=== PATIENT | male | born 1950 | race Caucasian/White ===

== ENCOUNTER 2017-10-05 18:15 | Observation (INO) | payer OTHER ==
[~2017-10-05] VITALS: Ht 172.7 cm; Wt 70.0 kg
[~2017-10-05 18:15] MED LIST: ACET500 PO; ALBIPROI INH; ALBU90I INH; ALBU90OI INH; ALBU90OI6 INH; ANTIBIOTIC OINT28 GM TOP; ASPI325 PO; ASPI81CH PO; ASPI81EC PO; ATOR10 PO; BISA10S PR; BISM87SU PO; CLON.5 PO; CLOP75 PO; DILT120 PO; DOK100 MG PO; DOXY100 PO; Enema133 M1 PR; FISH1000 PO; FOLI1 PO; FORM12IH INH; Flonase 0.05% N16 GM; GABA100 PO; IPRAOI INH; LEVO750 PO; LISHYD1012 PO; LISI5 PO; LITH300C PO; LORA10ER PO; METO50 PO; MULVITMIND PO; Milk Of Ma400 MG/5 M PO; Miralax17 GM PO; NAPR550 PO; NATURE'S TEARS15 M1 OP; Norco 5-325 Ta1 EACH PO; PRED20 PO; PYRI100 PO; QUET100 PO; RXNAPNA550 PO; SILD50TA PO; SIMV10 PO; TAMS.4ER PO; THIA100 PO; TIOT18 INH; TOCO400 PO; XARELTO20 MG PO; [UNRECOGNIZED DRUG - CODE] TOP; [UNRECOGNIZED DRUG - OTHER] TOP
[2017-10-05 19:12] LABS: BASOPHILS ABSOLUTE AUTO 0.03 K/mm3 (0.00-0.23); BASOPHILS PERCENT AUTO 0 % (0-2); EOSINOPHILS ABSOLUTE AUTO 0.16 K/mm3 (0.00-0.68); EOSINOPHILS PERCENT AUTO 2 % (0-6); Hematocrit 39.7 % (37.0-53.0); Hemoglobin 13.4 g/dL (13.5-17.5); IMMATURE GRAN ABSOLUTE AUTO 0.07 K/mm3 (0.00-0.10); IMMATURE GRAN PERCENT AUTO 1 % (0-1); LYMPHOCYTES ABSOLUTE AUTO 2.16 K/mm3 (0.84-5.20); LYMPHOCYTES PERCENT AUTO 25 % (21-46); MONOCYTES ABSOLUTE AUTO 0.72 K/mm3 (0.16-1.47); MONOCYTES PERCENT AUTO 8 % (4-13); Mean Corpuscular HGB 31.3 pg (26.0-34.0); Mean Corpuscular HGB Conc 33.8 g/dL (31.5-36.5); Mean Corpuscular Volume 93 fL (80-100); Mean Platelet Volume 8.7 fL (9.1-12.4); NEUTROPHILS ABSOLUTE AUTO 5.52 K/mm3 (1.96-9.15); NEUTROPHILS PERCENT AUTO 64 % (41-73); Platelet Count 205 K/mm3 (150-400); RDW Coefficient Variation 15.3 % (11.7-14.2); RDW Standard Deviation 51.6 fL (35.1-46.3); Red Blood Cell Count 4.28 M/mm3 (4.30-5.90); White Blood Cell Count 8.66 K/mm3 (4.00-11.30)
[2017-10-05 19:28] LABS: Alanine Aminotransfer (ALT/SGP 24 U/L (12-78); Albumin, Blood 3.1 g/dL (3.4-5.0); Albumin/Globulin Ratio 0.8 (0.8-1.8); Alk Phos 92 U/L (50-136); Anion Gap 13 mmol/L (6-16); Aspartate Aminotrans (AST/SGOT 35 U/L (12-37); Bilirubin, Total 0.4 mg/dL (0.1-1.0); Blood Urea Nitrogen 7 mg/dL (8-24); Bun/Creatinine Ratio 12.9 (12.0-20.0); CO2, Blood 26 mmol/L (21-32); Chloride, Blood 96 mmol/L (98-108); Creatinine, Blood 0.54 mg/dL (0.60-1.20); Ethanol (Alcohol), Blood, Med 102 mg/dL; Globulin, Blood 3.8 g/dL (2.2-4.0); Glomerular Filtration Rate >60 (60-); Glucose, Blood 81 mg/dL (70-99); Potassium, Blood 2.9 mmol/L (3.5-5.5); Salicylate 3.3 mg/dL (2.8-20.0); Sodium, Blood 135 mmol/L (136-145); Thyroxine (T4) 9.2 ug/dL (4.5-12.1); Total Protein, Blood 6.9 g/dL (6.4-8.2)
[2017-10-05 19:31] LABS: Thyroid Stimulating Hormone 0.997 uIU/mL (0.360-4.800)
[2017-10-05 19:37] LABS: Acetaminophen, Random <2.0 ug/mL (10.0-30.0)
[2017-10-05 19:51] LABS: Source, Urine Clean Catch
[2017-10-05 20:14] LABS: U Amphetamine Screen Not Detected; U Barbituate Screen Not Detected; U Benzodiazapine Screen Not Detected; U Buprenorphine Screen Not Detected; U Cannabinoids Screen DETECTED; U Cocaine Screen Not Detected; U Methadone Screen Not Detected; U Methamphetamine Screen Not Detected; U Opiates Screen Not Detected; U Oxycodone Screen Not Detected; U Phencyclidine Screen Not Detected; U Propoxyphene Screen Not Detected
[2017-10-05 20:34] LABS: Bilirubin, Urine Neg (Neg); Blood, Urine Neg (Neg); Glucose Qualitative, Urine Neg (Neg); Ketones, Urine Neg (Neg); Leukocyte Esterase, Urine Neg (Neg); Nitrite, Urine Neg (Neg); Protein, Urine 1+ (Neg); Specific Gravity, Urine 1.015 (1.003-1.022); Urobilinogen, Urine 1+ (Normal)
[2017-10-05 20:52] LABS: Appearance, Urine Clear (Clear); Color, Urine Yellow (P-Yellow)
[2017-10-06 20:25] LABS: Calcium, Ionized (POC) 1.08 mmol/L (1.10-1.46); Chloride (POC) 92 mmol/L (98-108); Creatinine (POC) 0.6 mg/dL (0.8-1.3); Glucose (ISTAT POC) 103 mg/dL (70-99); Hemoglobin (POC) 13.3 g/dL (13.5-17.5); Potassium (POC) 3.3 mmol/L (3.5-5.5); Sodium (POC) 136 mmol/L (135-148); Total CO2 (POC) 32 mmol/L (21-32)
[2017-10-07 10:09] LABS: Lithium <0.20 mmol/L (0.60-1.20)
== END 2017-10-07 15:05 | disposition home or self-care (01) ==
LOC: ER 18:15 → EOR 18:16
PROVIDERS: Emergency Medicine; Physician Assistant; Psychiatry & Neurology Psychiatry
DX: F31.60 Bipolar disorder, current episode mixed, unspecified (principal); R45.851 Suicidal ideations; F12.10 Cannabis abuse, uncomplicated; F10.20 Alcohol dependence, uncomplicated; E87.6 Hypokalemia; F17.200 Nicotine dependence, unspecified, uncomplicated; J44.9 Chronic obstructive pulmonary disease, unspecified; I73.9 Peripheral vascular disease, unspecified; Z79.82 Long term (current) use of aspirin; Z79.891 Long term (current) use of opiate analgesic; Z79.899 Other long term (current) drug therapy; Z87.01 Personal history of pneumonia (recurrent); Z86.73 Personal history of transient ischemic attack (TIA), and cerebral infarction without residual deficits; Z86.59 Personal history of other mental and behavioral disorders; Z95.1 Presence of aortocoronary bypass graft
CPT/HCPCS: 36415; 80047; 80053; 80178; 84436; 84443; 85014; 85025; 99285; G0378; G0480

== ENCOUNTER 2017-12-17 07:55 | Inpatient (IN) | payer MEDICARE, OTHER ==
[~2017-12-17] VITALS: Ht 172.7 cm; Wt 61.8 kg
[2017-12-17 08:15] LABS: PCO2 Arterial 35.4 mmHg (35-45); PO2 Arterial 67.8 mmHg (80-100); pH Blood Arterial 7.46 (7.35-7.45)
[2017-12-17 08:46] LABS: Mean Corpuscular HGB 31.8 pg (26.0-34.0); Mean Corpuscular HGB Conc 33.3 g/dL (31.5-36.5); Mean Corpuscular Volume 95 fL (80-100); Mean Platelet Volume 10.8 fL (9.1-12.4); Platelet Count 289 K/mm3 (150-400); RDW Coefficient Variation 14.8 % (11.7-14.2); RDW Standard Deviation 52.2 fL (35.1-46.3); Red Blood Cell Count 5.35 M/mm3 (4.30-5.90); White Blood Cell Count 10.37 K/mm3 (4.00-11.30)
[2017-12-17] MEDS ORDERED: DILT180ER PO (08:59)
[2017-12-17] MEDS ORDERED: CLOP75 PO (08:59)
[2017-12-17] MEDS ORDERED: GABA300 PO (09:00)
[2017-12-17] MEDS ORDERED: Flovent Diskus50 MCG INH (09:00)
[2017-12-17 09:01] LABS: Blood, Urine Neg (Neg); Glucose Qualitative, Urine Neg (Neg); Ketones, Urine 1+ (Neg); Leukocyte Esterase, Urine Neg (Neg); Nitrite, Urine Neg (Neg); Protein, Urine 2+ (Neg); Specific Gravity, Urine 1.025 (1.003-1.022); Urobilinogen, Urine 2+ (Normal)
[2017-12-17] MEDS ORDERED: ASPI325 PO (09:01)
[2017-12-17] MEDS ORDERED: GLYC2 PO (09:01)
[2017-12-17] MEDS ORDERED: LITH300C PO (09:01)
[2017-12-17 09:06] LABS: Alanine Aminotransfer (ALT/SGP 31 U/L (12-78); Albumin, Blood 2.8 g/dL (3.4-5.0); Albumin/Globulin Ratio 0.6 (0.8-1.8); Alk Phos 128 U/L (50-136); Anion Gap 15 mmol/L (6-16); Aspartate Aminotrans (AST/SGOT 16 U/L (12-37); Bilirubin, Total 1.1 mg/dL (0.1-1.0); Blood Urea Nitrogen 41 mg/dL (8-24); CO2, Blood 26 mmol/L (21-32); Calcium, Blood 9.5 mg/dL (8.5-10.1); Chloride, Blood 96 mmol/L (98-108); Glomerular Filtration Rate >60 (60-); Glucose, Blood 234 mg/dL (70-99); Potassium, Blood 3.5 mmol/L (3.5-5.5); Sodium, Blood 137 mmol/L (136-145); Total Protein, Blood 7.8 g/dL (6.4-8.2); Troponin I <0.015 ng/mL (0.000-0.040)
[2017-12-17 09:07] LABS: BAND PERCENT MAN 21 % (0-8); BASOPHILS PERCENT MAN 0 % (0-2); EOSINOPHILS PERCENT MAN 0 % (0-6); LYMPHOCYTES ABSOLUTE MAN 1.24 K/mm3 (0.84-5.20); LYMPHOCYTES PERCENT MAN 12 % (21-46); METAMYELOCYTE PERCENT MAN 1 % (0-0); MONOCYTES ABSOLUTE MAN 0.82 K/mm3 (0.16-1.47); MONOCYTES PERCENT MAN 8 % (4-13); NEUTROPHILS ABSOLUTE MAN 8.19 K/mm3 (1.96-9.15); SEG NEUTROPHILS PERCENT MAN 58 % (41-73); TOTAL CELLS COUNTED 100
[2017-12-17] MEDS ORDERED: Multivitamin1 EAC2 PO (09:07)
[2017-12-17] MEDS ORDERED: MUCOSA400 MG PO (09:07)
[2017-12-17] MEDS ORDERED: GAVILAX17 GM PO (09:08)
[2017-12-17] MEDS ORDERED: SALONPAS GEL-P1 EACH TOP (09:08)
[2017-12-17] MEDS ORDERED: BUDE6HFA INH (09:09)
[2017-12-17] MEDS ORDERED: TAMS.4ER PO (09:09)
[2017-12-17] MEDS ORDERED: Sulindac200 MG PO (09:09)
[2017-12-17] MEDS ORDERED: VITAMIN B-6 PO (09:10)
[2017-12-17] MEDS ORDERED: VITAMIN D3400 UNIT PO (09:10)
[2017-12-17] MEDS ORDERED: ALBU90OI61 INH (09:11)
[2017-12-17] MEDS ORDERED: Ipratr-Albuterol3 ML NEB (09:11)
[2017-12-17 09:12] LABS: Appearance, Urine Clear (Clear); Bilirubin, Urine 1+ (Neg); Color, Urine Yellow (P-Yellow)
[2017-12-17] MEDS ORDERED: SCOPOLAMINE1 EACH TOP (09:12)
[2017-12-17] MEDS ORDERED: SM PAIN RELIEV PO (09:12)
[2017-12-17] MEDS ORDERED: TIOT18 INH (09:12)
[2017-12-17 09:18] LABS: Red Blood Cells, Urine Not Seen /hpf (0-2); Squamous Epithelial Cells Mod /hpf (Few); White Blood Cells, Urine Not Seen /hpf (0-5)
[2017-12-17 09:19] LABS: Bacteria Not Seen /hpf; Calcium Oxalate Crystals Many /hpf
[2017-12-17 09:24] LABS: International Normalized Ratio 1.28; Prothrombin Time Results 13.4 Sec (9.7-11.5)
[2017-12-17] MEDS ORDERED: NICO21TP TD (12:02)
[2017-12-17] MEDS ORDERED: Woman's Laxative5 MG PO (12:03)
[2017-12-18 04:27] LABS: Hematocrit 37.7 % (37.0-53.0); Hemoglobin 12.6 g/dL (13.5-17.5); Mean Corpuscular HGB 31.5 pg (26.0-34.0); Mean Corpuscular HGB Conc 33.4 g/dL (31.5-36.5); Mean Corpuscular Volume 94 fL (80-100); Mean Platelet Volume 10.8 fL (9.1-12.4); Platelet Count 182 K/mm3 (150-400); RDW Coefficient Variation 14.5 % (11.7-14.2); White Blood Cell Count 8.94 K/mm3 (4.00-11.30)
[2017-12-18 04:59] LABS: International Normalized Ratio 1.41; Prothrombin Time Results 14.8 Sec (9.7-11.5)
[2017-12-18 05:23] LABS: Alanine Aminotransfer (ALT/SGP 18 U/L (12-78); Albumin, Blood 1.8 g/dL (3.4-5.0); Albumin/Globulin Ratio 0.5 (0.8-1.8); Alk Phos 63 U/L (50-136); Anion Gap 6 mmol/L (6-16); Aspartate Aminotrans (AST/SGOT 22 U/L (12-37); Blood Urea Nitrogen 32 mg/dL (8-24); CO2, Blood 37 mmol/L (21-32); Calcium, Blood 8.4 mg/dL (8.5-10.1); Chloride, Blood 100 mmol/L (98-108); Creatinine, Blood 0.76 mg/dL (0.60-1.20); Globulin, Blood 3.9 g/dL (2.2-4.0); Glomerular Filtration Rate >60 (60-); Glucose, Blood 145 mg/dL (70-99); Potassium, Blood 3.1 mmol/L (3.5-5.5); Sodium, Blood 143 mmol/L (136-145)
[2017-12-18 05:36] LABS: BAND PERCENT MAN 45 % (0-8); BASOPHILS PERCENT MAN 0 % (0-2); EOSINOPHILS PERCENT MAN 0 % (0-6); LYMPHOCYTES ABSOLUTE MAN 0.62 K/mm3 (0.84-5.20); LYMPHOCYTES PERCENT MAN 7 % (21-46); METAMYELOCYTE ABSOLUTE MAN 0.62 K/mm3 (0.00-0.00); METAMYELOCYTE PERCENT MAN 7 % (0-0); MONOCYTES ABSOLUTE MAN 0.53 K/mm3 (0.16-1.47); MONOCYTES PERCENT MAN 6 % (4-13); MYELOCYTE ABSOLUTE MAN 0.17 K/mm3 (0.00-0.00); MYELOCYTE PERCENT MAN 2 % (0-0); NEUTROPHILS ABSOLUTE MAN 6.97 K/mm3 (1.96-9.15); SEG NEUTROPHILS PERCENT MAN 33 % (41-73); TOTAL CELLS COUNTED 100
[2017-12-18 06:48] LABS: Total Protein, Blood 5.7 g/dL (6.4-8.2)
[2017-12-19 04:34] LABS: Hematocrit 39.3 % (37.0-53.0); Mean Corpuscular HGB 31.8 pg (26.0-34.0); Mean Corpuscular HGB Conc 33.1 g/dL (31.5-36.5); Mean Corpuscular Volume 96 fL (80-100); Mean Platelet Volume 10.8 fL (9.1-12.4); Platelet Count 173 K/mm3 (150-400); RDW Coefficient Variation 14.5 % (11.7-14.2); RDW Standard Deviation 50.6 fL (35.1-46.3); Red Blood Cell Count 4.09 M/mm3 (4.30-5.90)
[2017-12-19 04:44] LABS: Anion Gap 6 mmol/L (6-16); Blood Urea Nitrogen 26 mg/dL (8-24); Bun/Creatinine Ratio 35.2 (12.0-20.0); CO2, Blood 39 mmol/L (21-32); Calcium, Blood 8.8 mg/dL (8.5-10.1); Chloride, Blood 98 mmol/L (98-108); Creatinine, Blood 0.74 mg/dL (0.60-1.20); Glomerular Filtration Rate >60 (60-); Glucose, Blood 78 mg/dL (70-99); Phosphorus, Blood 2.3 mg/dL (2.5-4.9); Potassium, Blood 3.1 mmol/L (3.5-5.5); Sodium, Blood 143 mmol/L (136-145)
[2017-12-19 05:37] LABS: BAND PERCENT MAN 31 % (0-8); BASOPHILS PERCENT MAN 0 % (0-2); EOSINOPHILS PERCENT MAN 0 % (0-6); LYMPHOCYTES ABSOLUTE MAN 1.32 K/mm3 (0.84-5.20); LYMPHOCYTES PERCENT MAN 15 % (21-46); METAMYELOCYTE ABSOLUTE MAN 0.17 K/mm3 (0.00-0.00); METAMYELOCYTE PERCENT MAN 2 % (0-0); MONOCYTES ABSOLUTE MAN 0.17 K/mm3 (0.16-1.47); MONOCYTES PERCENT MAN 2 % (4-13); NEUTROPHILS ABSOLUTE MAN 7.12 K/mm3 (1.96-9.15); SEG NEUTROPHILS PERCENT MAN 50 % (41-73); TOTAL CELLS COUNTED 100
[2017-12-20 03:37] LABS: BASOPHILS ABSOLUTE AUTO 0.06 K/mm3 (0.00-0.23); BASOPHILS PERCENT AUTO 1 % (0-2); EOSINOPHILS ABSOLUTE AUTO 0.16 K/mm3 (0.00-0.68); EOSINOPHILS PERCENT AUTO 2 % (0-6); Hematocrit 35.1 % (37.0-53.0); Hemoglobin 11.8 g/dL (13.5-17.5); IMMATURE GRAN ABSOLUTE AUTO 0.24 K/mm3 (0.00-0.10); IMMATURE GRAN PERCENT AUTO 2 % (0-1); LYMPHOCYTES ABSOLUTE AUTO 0.82 K/mm3 (0.84-5.20); LYMPHOCYTES PERCENT AUTO 8 % (21-46); MONOCYTES ABSOLUTE AUTO 0.87 K/mm3 (0.16-1.47); MONOCYTES PERCENT AUTO 8 % (4-13); Mean Corpuscular HGB 31.6 pg (26.0-34.0); Mean Corpuscular HGB Conc 33.6 g/dL (31.5-36.5); Mean Corpuscular Volume 94 fL (80-100); Mean Platelet Volume 10.4 fL (9.1-12.4); NEUTROPHILS ABSOLUTE AUTO 8.55 K/mm3 (1.96-9.15); NEUTROPHILS PERCENT AUTO 80 % (41-73); Platelet Count 184 K/mm3 (150-400); RDW Coefficient Variation 14.1 % (11.7-14.2); RDW Standard Deviation 48.8 fL (35.1-46.3); Red Blood Cell Count 3.73 M/mm3 (4.30-5.90)
[2017-12-20 03:56] LABS: Albumin, Blood 1.8 g/dL (3.4-5.0); Anion Gap 4 mmol/L (6-16); Blood Urea Nitrogen 18 mg/dL (8-24); Bun/Creatinine Ratio 28.8 (12.0-20.0); CO2, Blood 35 mmol/L (21-32); Calcium, Blood 8.1 mg/dL (8.5-10.1); Chloride, Blood 100 mmol/L (98-108); Creatinine, Blood 0.62 mg/dL (0.60-1.20); Glomerular Filtration Rate >60 (60-); Glucose, Blood 132 mg/dL (70-99); Phosphorus, Blood 1.9 mg/dL (2.5-4.9); Potassium, Blood 3.2 mmol/L (3.5-5.5); Sodium, Blood 139 mmol/L (136-145)
[2017-12-21 05:13] LABS: Albumin, Blood 1.7 g/dL (3.4-5.0); Anion Gap 6 mmol/L (6-16); Blood Urea Nitrogen 14 mg/dL (8-24); Bun/Creatinine Ratio 22.3 (12.0-20.0); CO2, Blood 30 mmol/L (21-32); Calcium, Blood 8.1 mg/dL (8.5-10.1); Chloride, Blood 102 mmol/L (98-108); Creatinine, Blood 0.63 mg/dL (0.60-1.20); Glomerular Filtration Rate >60 (60-); Glucose, Blood 107 mg/dL (70-99); Phosphorus, Blood 2.2 mg/dL (2.5-4.9); Potassium, Blood 3.5 mmol/L (3.5-5.5); Sodium, Blood 138 mmol/L (136-145)
[2017-12-21 20:06] LABS: Potassium, Blood 3.2 mmol/L (3.5-5.5)
[2017-12-22 05:33] LABS: Albumin, Blood 1.6 g/dL (3.4-5.0); Anion Gap 6 mmol/L (6-16); Blood Urea Nitrogen 9 mg/dL (8-24); Bun/Creatinine Ratio 15.1 (12.0-20.0); CO2, Blood 28 mmol/L (21-32); Calcium, Blood 7.9 mg/dL (8.5-10.1); Chloride, Blood 104 mmol/L (98-108); Glomerular Filtration Rate >60 (60-); Glucose, Blood 115 mg/dL (70-99); Phosphorus, Blood 2.3 mg/dL (2.5-4.9); Potassium, Blood 3.4 mmol/L (3.5-5.5); Sodium, Blood 138 mmol/L (136-145)
[2017-12-22] MEDS ORDERED: Cardizem CD 24240 MG PO (12:16)
[2017-12-22] MEDS ORDERED: Ipratr-Albuterol3 ML (12:22)
[2017-12-22] MEDS ORDERED: ACET325 PO (12:25)
[2017-12-22] MEDS ORDERED: Augmentin 875-1 EACH PO (12:30)
[2017-12-22] MEDS ORDERED: BAYER CHEWABLE81 MG PO (12:32)
[2017-12-22] MEDS ORDERED: AZIT500 PO (12:33)
[2017-12-22] MEDS ORDERED: XARELTO20 MG PO (12:34)
== END 2017-12-22 14:58 | DRG 871 ==
LOC: ER 07:55 → ICUW 10:19 → ICUE 10:19 → MEDS 12-20 14:13 → ENPENDDIS 12-22 12:00 → MEDS 12-22 14:58
PROVIDERS: Emergency Medicine; Family Medicine; Internal Medicine
DX: A41.9 Sepsis, unspecified organism (principal); J96.01 Acute respiratory failure with hypoxia; J18.9 Pneumonia, unspecified organism; J69.0 Pneumonitis due to inhalation of food and vomit; G93.41 Metabolic encephalopathy; J44.0 Chronic obstructive pulmonary disease with (acute) lower respiratory infection; K56.7 Ileus, unspecified; R65.20 Severe sepsis without septic shock; E83.39 Other disorders of phosphorus metabolism; E87.6 Hypokalemia; Z95.1 Presence of aortocoronary bypass graft; N40.0 Benign prostatic hyperplasia without lower urinary tract symptoms; I25.10 Atherosclerotic heart disease of native coronary artery without angina pectoris; I73.9 Peripheral vascular disease, unspecified; I48.2 Chronic atrial fibrillation; I69.391 Dysphagia following cerebral infarction; I69.322 Dysarthria following cerebral infarction; R13.12 Dysphagia, oropharyngeal phase; F31.9 Bipolar disorder, unspecified; F10.20 Alcohol dependence, uncomplicated; F17.210 Nicotine dependence, cigarettes, uncomplicated
CPT/HCPCS: 36415; 36600; 51702; 71045; 74176; 80053; 80069; 81001; 82803; 83605; 83735; 83880; 84132; 84145; 84484; 85025; 85384; 85610; 85730; 87040; 92526; 92610; 93005; 93010; 94640; 94760; 96365; 96366; 96368; 96375; 97110; 97116; 97162; 97530; 99285; C9113; G8978; G8979; G8996; G8997; J0456; J1650; J1956; J2543; J2930; J3480; J7030; J7050; J7060; J7120